=== PATIENT | female | born 1935 | race Caucasian/White ===

== ENCOUNTER 2018-09-19 05:17 | Inpatient (IN) | payer MEDICARE, OTHER ==
[2018-09-19] VITALS (7 sets, daily range): BP systolic 123–164; BP diastolic 72–96; Ht 165.1 cm; Wt 76.5 kg
[~2018-09-19] VITALS: Ht 165.1 cm; Wt 76.5 kg
--- NOTE | ~2018-09-19 | HEMODYNAMI ---
PATIENT:IAIN DOLL MEDICAL RECORD: [id number] : 37 LOCATION:[address] [id number] ADMISSION DATE: 09/19/18 Generatedon:09/19/201816:15 Patient name: IAIN DOLL Patient #: [id number] SSN: : 1935 Date of study: 09/19/2018 Page: Of Hemodynamic Procedure Report Patient Data Patient Demographics Procedure consent was obtained First Name: IAIN Gender: Female Last Name: SHARMILA : 1935 Patient #: [id number] Age: 82 year(s) Race: Additional ID: [id number] Contact details Address: [address] [place] [address] State: [place] City: [place] Zip code: [address] Past Medical History Allergies: No known allergies Admission Admission Data Admission Date: 09/19/2018 Admission Time: 6:41 Admit Source: Other Room #: D.2127 Lab Results Lab Result Date: 09/19/2018 Lab Result Time: 0:00 Biochemistry Name Units Result Min Max BUN mg/dl 13 --(--*-)-- 7 18 Creatinine mg/dl 0.9 --(-*--)-- 0.6 1.3 CBC Name Units Result Min Max Hematocrit % 37.2 *-(----)-- 42 54 Hemoglobin g/dl 12.5 *-(----)-- 13.5 17.5 Procedure Procedure Types Cath Procedure Diagnostic Procedure C [facility] w/Coronaries PCI Procedure Coronary Stent Coronary Stent Initial Procedure Description Procedure Date Procedure Date: 09/19/2018 Procedure Start Time: 15:38 Procedure End Time: 16:13 Procedure Staff Name Function Bubba Poe RT Monitor Adenike Reza RN Nurse Raul Morales MD Performing Physician Thierno Torres RT Scrub Felipa Hernández RT Monitor Procedure Data Cath Procedure Fluoroscopy Diagnostic fluoroscopy Total fluoroscopy Time: time: 11.5 min 11.5 min Diagnostic fluoroscopy Total fluoroscopy dose: dose: 1214 mGy 1214 mGy Contrast Material Contrast Material Type Amount (ml) Isovue 300 129 Entry Location Entry Primary Successful Side Size Upsize Upsize Entry Closure Succes sful Closure Location (Fr) 1 (Fr) 2 (Fr) Remarks Device Remarks Radial Right 6 Fr artery Short Femoral Right 5 Fr 6 Fr Exoseal artery Short Estimated blood loss: 5 ml Diagnostic catheters Device Type Used For End Catheter Placement DIAGNOSTIC Madison 110cm 5 Procedure Fr catheter ([id number]) DIAGNOSTIC 3DRC 5Fr Procedure catheter ([id number]) DIAGNOSTIC 3DRC 5Fr Procedure catheter ([id number]) Procedure Complications No complications Procedure Medications Medication Administration Route Dosage Oxygen etCO2 Nasal cannula 2 l/min Lidocaine 2% added to field 20 Heparin Flush Bag added to field 2 bags (1000units/500ml NS) 0.9% NaCl I.V. 100 ml/hr Radial Cocktail I.A. 1 syringe (Verapomil 2mg/Nitro 400mcg/Heparin 1500units) Heparin Bolus I.V. 4000 units Versed I.V. 1 mg Fentanyl I.V. 50 mcg Versed I.V. 1 mg Versed I.V. 1 mg Fentanyl I.V. 50 mcg Fentanyl I.V. 50 mcg Integrilin (Bolus I.V. 7.3 ml 2mg/ml) Versed I.V. 1 mg Fentanyl I.V. 50 mcg Plavix P.O. 600 mg Hemodynamics Rest HGB: 12.5 (g/dl) Heart Rate: 72 (bpm) Pressure Samples Time Site Value (mmHg) Purpose Heart Use Rate(bpm) 15:46 LV 138/12,14 Snapshot 75 Snapshots Pre Cath Intra NCS Post Cath Vital Signs Time Heart Resp SPO2 etCO2 NIBP (mmHg) Rhythm Pain Sedation Rate (ipm) (%) (mmHg) Status Level (bpm) 15:28:22 73 17 95 0 164/90(141) NSR 0 (11) 10(A) , No pain 15:32:45 79 13 97 0 165/85(133) NSR 0 (11) 10(A) , No pain 15:37:05 70 18 92 19.5 147/79(124) NSR 0 (11) 10(A) , No pain 15:41:19 76 16 92 0 137/80(113) NSR 0 (11) 9(A) , No pain 15:45:37 72 14 94 0 135/73(109) NSR 0 (11) 9(A) , No pain 15:49:53 72 13 94 29.3 140/73(104) NSR 0 (11) 9(A) , No pain 15:54:15 72 14 93 21 152/78(117) NSR 0 (11) 10(A) , No pain 15:58:35 74 15 95 9 141/83(127) NSR 0 (11) 9(A) , No pain 16:02:55 74 15 93 0 128/68(105) NSR 0 (11) 9(A) , No pain 16:07:11 70 16 96 31.6 133/65(105) NSR 0 (11) 10(A) , No pain 16:11:25 75 10 93 33.1 121/68(102) NSR 0 (11) 10(A) , No pain Medications Time Medication Route Dose Verified Delivered Reason Not es Effectiveness by by 15:32:52 Oxygen etCO2 2 l/min Raul Jeong used for Nasal St Rafa Reza RN procedure cannula 15:33:00 Lidocaine 2% added 20ml Raul Carter for local to vial [facility] anesthetic field MD PETIT 15:33:06 Heparin Flush added 2 bags Raul Carter used for Bag to [facility] procedure (1000units/500ml field MD PETIT NS) 15:33:13 0.9% NaCl I.V. 100 Raul Jeong Per physician ml/hr St Rafa Reza RN, MD 15:34:49 Versed I.V. 1 mg Raul Jeong for sedation St Rafa Reza RN, MD 15:34:55 Fentanyl I.V. 50 mcg Raul Roldanie for sedation St Rafa Reza RN, MD 15:37:12 Radial Cocktail I.A. 1 Raul Carter for (Verapomil syringe [facility] vasodilation 2mg/Nitro MD PETIT 400mcg/Hepari 15:39:00 Versed I.V. 1 mg Raul Jamarie for sedation St Rafa Reza RN, MD 15:39:08 Fentanyl I.V. 50 mcg Raul Roldanie for sedation St Rafa Reza RN, MD 15:55:04 Versed I.V. 1 mg Raul Roldanie for sedation St Rafa Reza RN, MD 15:55:09 Fentanyl I.V. 50 mcg Raul Buffie for sedation St Rafa Reza RN, MD 15:56:14 Heparin Bolus I.V. 4000 Raul Carter for abraham ified units [facility] anticoagulation with dr MD MD lakhani 16:01:57 Integrilin I.V. 7.3 ml Raul Jeong for Was maribel (Bolus 2mg/ml) St Rafa Reza RN antiplatelet 2.7 ml MD therapy of vial 16:03:10 Versed I.V. 1 mg Raul Joeng for sedation St Rafa Reza RN, MD 16:03:13 Fentanyl I.V. 50 mcg Raul Jeong for sedation St Rafa Reza RN, MD 16:10:01 Plavix P.O. 600 mg [address] Je[address] for St Rafa Reza RN antiplatelet therapy Procedure Log Time Note 15:00:09 Adenike Reza RN sent for patient. Start room use. 15:21:50 Informed consent obtained and on chart 15:21:54 Admit Source: Other 15:22:17 Time tracking: Regular hours (M-F 7:00 - 5:00) 15:22:21 Plan of Care:Hemodynamics will remain stable., Cardiac rhythm will remain stable., Comfort level will be maintained., Respiratory function will remain adequate., Patient/ family verbilizes understanding of procedure., Procedure tolerated without complication., Recovers from procedure without complications.. 15:22:26 Patient received from Med II to [facility] 2 Alert and oriented. Tansferred to table in Supine position. 15:22:27 Warm blankets applied, and lynette hugger turned on for patient comfort. 15:22:28 ECG and BP/O2 sat monitors applied to patient. 15:22:28 Correct patient and procedure confirmed by team. 15:22:44 H&P Date Dictated: 09/19/2018 Within 30 days and on chart.. 15:22:45 Pre-op teaching completed and patient verbalized understanding. 15:22:45 Pre-procedure instructions explained to patient. 15:22:46 Family in waiting room. 15:22:47 Patient NPO since Midnight. 15:22:53 Patient allergic to No known allergies 15:22:54 Is the patient allergic to Iodine/contrast media? No. 15:24:35 Is patient on blood thinner?No 15:26:20 Patient diabetic? No. 15:26:30 IV patent on arrival in left forearm with 0.9% NaCl at KVO. :: Lab Result : Hemoglobin 12.5 g/dl Lab Result : Hematocrit 37.2 % Lab Result : BUN 13 mg/dl Lab Result : Creatinine 0.9 mg/dl 15:: Lab results completed and on chart. 15:: Vital chart was started 15:32:00 Baseline sample Acquired. 15:32:12 Rhythm: sinus rhythm 15:: ST DEPRESSION 15::32 ----Pre-sedation anethsthesia assessment.---- 15:32:38 Previous problem with sedation/anesthesia? No ? 15:32:39 Snore? Yes 15:32:41 Sleep apnea? No 15:32:45 Deviated septum? No 15:32:48 Opens mouth fully? Yes 15:32:49 Sticks out tongue? Yes 15:32:52 Airway obstruction? No ? 15:32:52 Oxygen 2 l/min etCO2 Nasal cannula was administered by Adenike Reza RN; used for procedure; 15:33:00 Lidocaine 2% 20ml vial added to field was administered by Raul Morales MD; for local anesthetic; 15:33:06 Heparin Flush Bag (1000units/500ml NS) 2 bags added to field was administered by Raul Morales MD; used for procedure; 15:33:09 Dentures? Yes IN, PARTIAL 15:33:13 0.9% NaCl 100 ml/hr I.V. was administered by Adenike Reza RN; Per physician; 15:33:17 Pre procedure: right dorsailis pedis pulse 1+ Palpable, but thready & weak; easily obliterated 15:33:21 Modified Zay's test Ulnar < 7 seconds 15:33:31 Patient pain scale 0/10 ?. 15:33:37 Right Radial & Right Groin area was prepped with chlora-prep and draped in sterile fashion 15:33:43 Alarms reviewed by R. N. 15:33:44 Sharps counted by scrub and verified by R.N. 15:33:45 --------ALL STOP TIME OUT------ 15:33:46 Final Timeout: patient, procedure, and site verified with staff and physician. All members of the team are in agreement. 15:33:48 Right Radial & Right Groin site verified by team. 15:33:51 Physical assessment completed. ASA score P 2 - A patient with mild systemic disease as per Raul Morales MD. 15:33:57 Sedation plan: IV Moderate Sedation Medication:Versed, Fentanyl 15:34:49 Versed 1 mg I.V. was administered by Adeinke Reza RN; for sedation; 15:34:55 Fentanyl 50 mcg I.V. was administered by Adenike Reza RN; for sedation; 15:37:12 Radial Cocktail (Verapomil 2mg/Nitro 400mcg/Heparin 1500units) 1 syringe I.A. was administered by Raul Morales MD; for vasodilation; 15:37:41 Zero performed for pressure channel P1 15:37:56 Use device set Radial Dx or PCI 15:37:57 ACIST Syringe (17391) opened to sterile field. 15:37:58 Bag Decanter (2002S) opened to sterile field. 15:37:58 Medline Cath Pack ([id number]) opened to sterile field. 15:37:59 ACIST Hand Control (72323) opened to sterile field. 15:37:59 DIAGNOSTIC WIRE .035 260cm J wire (409616) opened to sterile field. 15:38:00 ACIST Manifold (93971) opened to sterile field. 15:38:01 Tegaderm 4 x 4 (1626W) opened to sterile field. 15:38:02 MBrace Wrist Support (087776321) opened to sterile field. 15:38:03 TR BAND Standard (QMX61OML) opened to sterile field. 15:38:09 SHEATH 6Fr Prelude Radial ([id number]) opened to sterile field. 15:38:14 Full Disclosure recording started 15:38:14 Procedure started. 15:38:21 Local anesthetic to right radial artery with Lidocaine 2% by Raul Morales MD.INITIAL ACCESS ONLY 15:38:37 A 6 Fr Short sheath was inserted into the Right Radial artery 15:38:52 A DIAGNOSTIC [place] 110cm 5 Fr catheter (224835) was advanced over the wire and used for Procedure. 15:38:56 Zero performed for pressure channel P1 15:39:00 Versed 1 mg I.V. was administered by Adenike Reza RN; for sedation; 15:39:08 Fentanyl 50 mcg I.V. was administered by Adenike Reza RN; for sedation; 15:41:11 GLIDE WIRE ANGLE 260cm (HO3691) opened to sterile field. 15:41:42 LCA angiography performed. 15:45:27 Catheter removed. 15:45:51 GUIDE 5FR AR1.0 catheter (SK9HI65) opened to sterile field. 15:46:35 LV hemodynamics recorded. 15:47:50 Catheter removed. 15:49:26 A DIAGNOSTIC 3DRC 5Fr catheter (005922X) was advanced over the wire and used for Procedure. 15:50:31 Catheter removed. unable to cannulate vessel. 15:51:00 SHEATH Prelude 5Fr 0.035 (DIA-2K-79-035) opened to sterile field. 15:51:26 Local anesthetic to right femoral artery with Lidocaine 2% by Raul Morales MD.ADDITIONAL ACCESS 15:51:38 A 5 Fr sheath was inserted into the Right Femoral artery 15:52:29 A DIAGNOSTIC 3DRC 5Fr catheter (078522X) was advanced over the wire and used for Procedure. 15:53:07 RCA angiography performed. 15:54:20 Catheter removed. 15:54:22 Proceeding to intervention. 15:54:50 SHEATH Prelude 6Fr 0.035 (LBU-3R-78-035) opened to sterile field. 15:55:04 Versed 1 mg I.V. was administered by Adenike Reza RN; for sedation; 15:55:09 Fentanyl 50 mcg I.V. was administered by Adenike Reza RN; for sedation; 15:56:14 Heparin Bolus 4000 units I.V. was administered by Raul Morales MD; for anticoagulation; verified with dr lakhani 15:56:19 Sheath upsized to a 6 Fr Short. 15:56:39 GUIDE 6FR EBU 3.5 catheter (MB1ZWQ09) opened to sterile field. 15:56:41 WHISPER 300cm guide wire ([id number]) opened to sterile field. 15:56:42 INFLATOR Merit BasixCompak (VA6010) opened to sterile field. 15:56:58 6 Fr EBU 3.5 guide catheter was inserted over the wire 15:57:07 WHISPER wire advanced. 15:59:50 ATTEMTING TO WIRE THE OM 16:01:08 UNABLE TO WIRE OM, REDIRECTED TO CIRC 16:01:10 Wire advanced across lesion. 16:01:57 Integrilin (Bolus 2mg/ml) 7.3 ml I.V. was administered by Adenike Reza RN; for antiplatelet therapy; Wasted 2.7 ml of vial 16:02:20 Inflate balloon Inflation number: 1 A EMERGE OTW 2.0 x 15 balloon ([id number]) was prepped and advanced across the Mid CX, then inflated to 15 ASAF for 0:30 (min:sec). 16:02:26 Balloon removed over the wire. 16:03:10 Versed 1 mg I.V. was administered by Adenike Reza RN; for sedation; 16:03:13 Fentanyl 50 mcg I.V. was administered by Adenike Reza RN; for sedation; 16:04:12 Place stent Inflation Number: 2 A INTEGRITY OTW 3.0 X 12 stent ([id number]) was prepped and advanced across the Mid CX. The stent was deployed at 14 ASAF for 0:33 (min:sec). 16:05:02 EXOSEAL 6Fr (EX600) opened to sterile field. 16:07:23 Stent catheter was removed intact over wire. 16:07:25 Wire removed. 16:07:26 Guide catheter removed. 16:07:53 Sheath removed intact; hemostasis achieved with Exoseal to the Right Femoral artery. 16:07:58 Procedure ended.(Physican Out) 16:08:17 Fluoroscopy time 11.50 minutes. 16:08:24 Fluoroscopy dose: 1214 mGy 16:08:24 Flurop Dose total: 1214 16:08:31 Contrast amount:Isovue 300 129ml. 16:08:33 Sharps counted by scrub and verified by R.N. 16:08:37 Insertion/operative site no bleeding no hematoma. 16:08:41 Post-op/insertion site Right Femoral artery dressed using a 4 x 4 and Tegaderm. 16:09:44 Procedure type changed to Cath procedure, Diagnostic procedure, LHC, LHC w/Coronaries, PCI procedure, Coronary Stent, Coronary Stent Initial 16:10:01 Plavix 600 mg P.O. was administered by Adenike Reza RN; for antiplatelet therapy; 16:12:34 TR band inflated with 10cc of air. 16:12:36 Post Procedure Pulses reassessed and unchanged 16:12:38 Post procedure rhythm: unchanged. 16:12:41 Estimated blood loss: 5 ml 16:12:44 Patient needs reinforcement of post procedure teaching. 16:12:44 Post procedure instruction explained to patient.Patient verbalizes understanding. 16:12:55 Procedure and supply charges have been captured, reviewed, submitted and are correct. 16:13:02 Procedure Complication : No complications 16:13:05 Vital chart was stopped 16:13:34 See physician's report for complete and final results. 16:13:40 Report given to [facility] II. 16:13:44 Patient transfered to [facility] with Stretcher. 16:13:47 Full Disclosure recording stopped 16:13:47 Procedure ended. 16:14:09 ACC-PCI Only Patient was given prescriptions, or instructed by Raul Morales MD to start/continue the following medications upon discharge: Plavix 16:14:10 End room use (Document Last) Intervention Summary Intervention Notes Time ActionType Lesion and Equipment Action# Pressure Duration Attributes Used 16:02:20 Inflate Mid CX EMERGE OTW 1 15 00:30 balloon 2.0 x 15 balloon ([id number]) 16:04:12 Place stent Mid CX INTEGRITY 2 14 00:33 OTW 3.0 X 12 stent ([id number]) Device Usage Item Name Manufacture Quantity Catalog Number Hospital Part Current Minimal Lot# / Charge Number Stock Stock Serial# Code ACIST Syringe Acist 1 51200 827345 946061 527588 20 (24303) Medical Systems Inc Medline Cath Medline 1 [id number] 983172 35799 889593 5 Pack ([id number]) Bag Decanter Microtek 1 958672 42025 514544 5 () Medical Inc. DIAGNOSTIC WIRE St Sukhdev 1 653537 404046 095539 926306 30 .035 260cm J wire (172254) ACIST Hand Acist 1 11060 587068 896297 033660 5 Control (12327) Medical Systems Inc ACIST Manifold Acist 1 76795 076912 333437 363967 5 (44073) Medical Systems Inc Tegaderm 4 x 4 3M 1 1626W 541013 722679 307264 5 (1626W) MBrace Wrist Advanced 1 140-0250-00 225493 10660 125160 5 Support Vascular (155056609) Dynamics TR BAND Terumo 1 IYU87-LYH 929984 866949 249712 40 Standard ([id number]) SHEATH 6Fr Merit 1 [id number] 431088 301655 950253 5 Prelude Radial Medical ([id number]) DIAGNOSTIC Terumo 1 40-5013 896190 825097 296405 5 [place] 110cm 5 Fr catheter (567604) GLIDE WIRE Terumo 1 WI4774 962014 554462 882470 5 ANGLE 260cm (XN7149) GUIDE 5FR AR1.0 Medtronic 1 PM0JJ67 129741 314744 861331 1 catheter (NY8VK47) DIAGNOSTIC 3DRC Cardinal 1 215662T 242219 436797 027362 9 5Fr catheter Health (901757T) SHEATH Prelude Merit 1 FGE-3D-24-035 390873 309384 101139 5 5Fr 0.035 Medical (XQW-7C-75-035) SHEATH Prelude Merit 1 CBU-3A-34-35 756300 0978059 579090 5 6Fr 0.035 Medical (PJF-1C-56-035) GUIDE 6FR EBU Medtronic 1 HE8ZCF78 021895 89773 075390 3 3.5 catheter (JD3SXH46) WHISPER 300cm Lui 1 [id number] 044264 544310 937652 5 guide wire Vascular (1559364XQ) INFLATOR Merit Merit 1 QK1617 204791 089075 403408 15 [employer] Medical (SV9782) EMERGE OTW 2.0 [place] 1 [id number] 171703 916482 826736 5 x 15 balloon Scientific ([id number]) INTEGRITY OTW Medtronic 1 [id number] 232414 668009 5 [id number] 3.0 X 12 stent ([id number]) EXOSEAL 6Fr Cardinal 1 EX600 807850 547796 392473 10 (EX600) Health Signature Audit [place] Stage Time Signature Unsigned Intra-Procedure 09/19/2018 Felipa Hernández 4:15:54 PM RT(R) Signatures Monitor : Bubba Poe RT Signature : Date : Time : Monitor : [facility] RT Signature : Date : Time : [address] [place] [address]
--- NOTE | ~2018-09-19 | OP ---
PATIENT NAME: IAIN DOLL MEDICAL RECORD: [id number] :[birth year] LOCATION:D.M2 D.7 ADMISSION DATE:09/19/18 SURGEON: TUAN CAPPS MD DATE OF OPERATION: 09/19/2018 PROCEDURE: Left heart catheterization, selective coronary angiography, right radial and right femoral artery approach. Marked tortuosity of ascending aorta, unable to engage the right via radial. Further interventions will need to be performed via femoral. FINDINGS: Left ventriculography not performed. LV pressure shows LV pressure of 124/14 with no significant pullback across the aortic valve. CORONARY ANATOMY: LEFT MAIN: Left main is free of disease. LAD: LAD in diagonal is somewhat of a bifid system. These are both severely diffusely diseased with the LAD totally occluded before the apex, not a vessel suitable for either percutaneous or open intervention. CIRCUMFLEX: There is a moderate-size circumflex system and at the takeoff of the first OM is an 80% stenosis. RIGHT CORONARY ARTERY: The right coronary artery is a large dominant artery without significant disease. PLAN: Intervention to the circumflex momentarily. DESCRIPTION OF PROCEDURE: Using indwelling 6 sheath, an EBU 3.5 guiding catheter provided excellent guide catheter support followed by 300-cm Whisper wire was placed across the tightly occluded 80% stenosis in circ, down this portion of vessel. Stent deployed was 3.0 x 12-mm Integrity nondrug-eluting stent up to 14 atmospheres. Final angiography shows excellent resolution of 80% stenosis. No significant residual. SEMAJ flow was 3 throughout the procedure. Integrilin was used in the case. Sheath was closed with ExoSeal device. Plavix was loaded in the lab. TRANSINT:[id number] Voice Confirmation ID: [id number] DOCUMENT ID: [id number] TUAN CAPPS MD at 2229 CC: [id number] DICTATION DATE: 09/19/18 1611 UM NURSE: 09/19/18 1648 ADM IN [place] [address] [place] [address]
--- NOTE | ~2018-09-19 | MORECARE ---
CASE MANAGEMENT DISCHARGE SUMMARY PATIENT: IAIN DOLL UNIT: [id number] ADM DATE: 09/19/18 AGE: 82 : 36 SEX: F ROOM/BED: D.5722 AUTHOR: ALFREDODOC PHYSICIAN: REFERRING PHYSICIAN: ANJEL ALVAREZ MD DATE OF SERVICE: 09/21/18 Discharge Plan Patient Name: IAIN DOLL Facility: [facility]:[place] : 1935 Planned Disposition: Home Anticipated Discharge Date: 09/21/18 Discharge Date: Expected LOS: 2 Initial Reviewer: [email or web address] Initial Review Date: 09/21/2018 Generated: 09/21/18 3:05 pm Comments DCP- Discharge Planning Updated by [email or web address]: Gracy Deras on 09/21/18 1:[address] Patient Name: IAIN DOLL Admission Status: ER Accout number: [id number] Admission Date: 09-19-2018 : 1935 Admission Diagnosis: Attending: ANJEL ALVAREZ Current LOS: 2 Anticipated DC Date: 09-21-2018 Planned Disposition: Home Primary Insurance: MEDICARE A & B Discharge Planning Comments: CM MET WITH PATIENT AND FAMILY ABOUT DC PLANNING NEEDS. STATES NO NEEDS. PATIENT IS INDEPENDANT WITH ADL'S AND LIVES WITH HER, DAUGHTER LIVES CLOSE. IMM SIGNED. NURSE IN ROOM TO DC PATIENT. CM WILL FOLLOW AND ASSIST NEEDED WITH DC PLANING/NEEDS. Paper Feeder: Gracy Deras DCPIA - Discharge Planning Initial Assessment Updated by [email or web address]: Gracy Deras on 09/21/18 1:59 pm * Is the patient Alert and Oriented? Yes * PCP YOANDY * Pharmacy [facility] IN [place] * Preadmission Environment Home with Family * ADLs Independent * Equipment None * List name and contact numbers for known caregivers / representatives who currently or will assist patient after discharge: * Community resources currently utilized None * Additional services required to return to the preadmission environment? No * Can the patient safely return to the preadmission environment? Yes * Has this patient been hospitalized within the prior 30 days at any hospital? No Coverage Notice Reviewer: [id number] - Gracy Deras Notice Issued Date-Time: 09/21/2018 13:56 Notice Type: IM Discharge Notice Notice Delivered To: Family Member Relationship to Patient: Spouse Personnel Director Name: Delivery Method: HAND - Hand Delivered Emely Days: Prior Verbal Notification: Recipient Understood Notice: Yes Recipient Signature: Yes Med Rec Note Co-signed by Attending: Coverage Notice Comment: Patient Name: IAIN DOLL Page 69200 at 1405 All edits/amendments must be made on the electronic document DICTATION DATE: 09/21/181404 STUCCO WORKER: ALYSSA 09/21/18 140 RPT#: [id number] DC DATE: STATUS: ADM IN [facility] [address] [place] [address] END OF REPORT
--- NOTE | ~2018-09-19 | MORECARE ---
CASE MANAGEMENT DISCHARGE SUMMARY PATIENT: IAIN DOLL UNIT: [id number] ADM DATE: 09/19/18 AGE: 82 : 36 SEX: F ROOM/BED: D.4331 AUTHOR: ALFREDODOC PHYSICIAN: REFERRING PHYSICIAN: ANJEL ALVAREZ MD DATE OF SERVICE: 09/21/18 Discharge Plan Patient Name: IAIN DOLL Facility: [facility]:[place] : 1935 Planned Disposition: Home Anticipated Discharge Date: 09/21/18 Discharge Date: 09/21/2018 Expected LOS: 2 Initial Reviewer: [email or web address] Initial Review Date: 09/21/2018 Generated: 09/21/18 3:50 pm Comments DCP- Discharge Planning Updated by [email or web address]: Gracy Deras on 09/21/18 1:[address] Patient Name: IAIN DOLL Admission Status: ER Accout number: [id number] Admission Date: 09-19-2018 : 1935 Admission Diagnosis: Attending: ANJEL ALVAREZ Current LOS: 2 Anticipated DC Date: 09-21-2018 Planned Disposition: Home Primary Insurance: MEDICARE A & B Discharge Planning Comments: CM MET WITH PATIENT AND FAMILY ABOUT DC PLANNING NEEDS. STATES NO NEEDS. PATIENT IS INDEPENDANT WITH ADL'S AND LIVES WITH HER, DAUGHTER LIVES CLOSE. IMM SIGNED. NURSE IN ROOM TO DC PATIENT. CM WILL FOLLOW AND ASSIST NEEDED WITH DC PLANING/NEEDS. Assistant Coach: Gracy Deras DCPIA - Discharge Planning Initial Assessment Updated by [email or web address]: Gracy Deras on 09/21/18 1:59 pm * Is the patient Alert and Oriented? Yes * PCP YOANDY * Pharmacy [facility] IN [place] * Preadmission Environment Home with Family * ADLs Independent * Equipment None * List name and contact numbers for known caregivers / representatives who currently or will assist patient after discharge: * Community resources currently utilized None * Additional services required to return to the preadmission environment? No * Can the patient safely return to the preadmission environment? Yes * Has this patient been hospitalized within the prior 30 days at any hospital? No Coverage Notice Reviewer: [id number] - Gracy Deras Notice Issued Date-Time: 09/21/2018 13:56 Notice Type: IM Discharge Notice Notice Delivered To: Family Member Relationship to Patient: Spouse Practical Nursing Instructor Name: Delivery Method: HAND - Hand Delivered Emely Days: Prior Verbal Notification: Recipient Understood Notice: Yes Recipient Signature: Yes Med Rec Note Co-signed by Attending: Coverage Notice Comment: Last DP export: 09/21/18 1:05 Patient Name: IAIN DOLL Page [phone] at 1450 All edits/amendments must be made on the electronic document DICTATION DATE: 09/21/181449 DIAGNOSTIC CARDIAC SONOGRAPHER: ALYSSA 09/21/181449 RPT#: [id number] DC DATE:09/21/18 STATUS: DIS IN [facility] [address] [place] [address] END OF REPORT
[2018-09-19] MEDS ORDERED: SYNTHROID150 MCG PO (05:22)
[2018-09-19] MEDS ORDERED: NEXIUM20 MG PO (05:22)
[2018-09-19] MEDS ORDERED: DONEPEZIL HCL10 M1 PO (05:22)
[2018-09-19] MEDS ORDERED: GLYCOLAX527 GM (05:23)
[2018-09-19] MEDS ORDERED: LYRICA25 MG PO (05:23)
[2018-09-19] MEDS ORDERED: MOBIC7.5 MG PO (05:23)
[2018-09-19] MEDS ORDERED: DDAVP0.1 MG PO (05:24)
[2018-09-19] MEDS ORDERED: DESERYL50 M2 PO (05:24)
[2018-09-19 06:25] LABS: BASOPHILS 0.2 % (0-2); EOSINOPHILS 0.5 % (0-7); HEMATOCRIT 37.2 % (36.0-48.0); HEMOGLOBIN 12.5 g/dL (12-16); IMMATURE GRANULOCYTES 0.2 % (0-5); LYMPHOCYTES 18.7 % (15-50); MCH 26.6 pg (26.0-34.0); MCHC 33.6 g/dL (31.0-37.0); MCV 79.1 fL (80.0-100.0); MEAN PLATELET VOLUME 8.5 fL (7.4-10.4); MONOCYTES 11.8 % (2-11); NEUTROPHILS 68.6 % (40-80); PLATELET COUNT 196 10x3/uL (130-400); RDW 14.2 % (11.5-14.5)
[2018-09-19 06:34] LABS: APTT 46.5 SECONDS (22.8-39.4); INR 1.06 (0.85-1.17); PROTIME 13.4 SECONDS (11.6-15.0)
[2018-09-19 06:42] LABS: ALBUMIN 3.1 g/dL (3.4-5.0); ALKALINE PHOSPHATASE 49 U/L (46-116); ALT (SGPT) 18 U/L (10-68); BILIRUBIN - TOTAL 0.46 mg/dL (0.2-1.3); CALC OSMOLALITY 266 mosm/kg (275-300); CALCIUM 8.5 mg/dL (8.5-10.1); CARBON DIOXIDE 26.4 mmol/L (21.0-32.0); CHLORIDE - SERUM 97 mmol/L (98-107); CREATININE - SERUM 0.9 mg/dL (0.6-1.3); GLUCOSE 109 mg/dL (74-106); POTASSIUM - SERUM 3.7 mmol/L (3.5-5.1); PROTEIN - SERUM 6.6 g/dL (6.4-8.2); SODIUM 133 mmol/L (136-145); UREA NITROGEN 13 mg/dL (7-18); eGFR NON AFRICAN AMERICAN 64 mL/min (90-120)
[2018-09-19 07:02] LABS: CKMB 11.9 U/L (0.0-3.6); CREATINE KINASE 187 UL (21-215); MAGNESIUM - SERUM 1.8 mg/dL (1.8-2.4)
[2018-09-19 07:04] LABS: TROPONIN-I 2.623 ng/mL (0.000-0.060)
[2018-09-19 12:36] LABS: TROPONIN-I 2.497 ng/mL (0.000-0.060)
[2018-09-19 18:54] LABS: CKMB 7.3 U/L (0.0-3.6); CREATINE KINASE 132 UL (21-215)
[2018-09-19 18:55] LABS: TROPONIN-I 2.362 ng/mL (0.000-0.060)
[2018-09-20] VITALS: BP 169/97
[2018-09-20 00:39] LABS: CKMB 5.7 U/L (0.0-3.6); CREATINE KINASE 162 UL (21-215); TROPONIN-I 1.951 ng/mL (0.000-0.060)
[2018-09-20 05:41] LABS: BASOPHILS 0.2 % (0-2); EOSINOPHILS 0 % (0-7); HEMATOCRIT 36.6 % (36.0-48.0); HEMOGLOBIN 12.2 g/dL (12-16); IMMATURE GRANULOCYTES 0.2 % (0-5); LYMPHOCYTES 9.8 % (15-50); MCH 26.6 pg (26.0-34.0); MCHC 33.3 g/dL (31.0-37.0); MCV 79.7 fL (80.0-100.0); MEAN PLATELET VOLUME 8.5 fL (7.4-10.4); MONOCYTES 9.6 % (2-11); NEUTROPHILS 80.2 % (40-80); RBC 4.59 10x6/uL (4.00-5.40); RDW 14.3 % (11.5-14.5); WBC 11.7 10x3/uL (4.8-10.8)
[2018-09-20 05:55] LABS: PLATELET COUNT 239 10x3/uL (130-400)
[2018-09-20 05:57] VITALS: BP 172/96
[2018-09-20 06:54] LABS: ALBUMIN 3.2 g/dL (3.4-5.0); ANION GAP 16.4 mmol/L (8-16); BILIRUBIN - TOTAL 0.51 mg/dL (0.2-1.3); CALCIUM 8.7 mg/dL (8.5-10.1); CARBON DIOXIDE 24.7 mmol/L (21.0-32.0); CHOL - HDL RATIO 2.8 ratio (2.3-4.1); CREATININE - SERUM 0.9 mg/dL (0.6-1.3); LDL-HDL RATIO 1.6 ratio (1.5-3.5); POTASSIUM - SERUM 4.1 mmol/L (3.5-5.1); PROTEIN - SERUM 6.7 g/dL (6.4-8.2)
[2018-09-20 07:48] VITALS: BP 169/83
[2018-09-20 11:31] VITALS: BP 164/82
[2018-09-20 14:51] LABS: APPEARANCE CLEAR (CLEAR); BILIRUBIN NEGATIVE (NEGATIVE); COLOR YELLOW (YELLOW); GLUCOSE NEGATIVE (NEGATIVE); KETONE MODERATE mg/dL (NEGATIVE); NITRITE NEGATIVE (NEGATIVE); PROTEIN 1+ mg/dL (NEGATIVE); UROBILINOGEN NORMAL (NORMAL)
[2018-09-20 14:52] LABS: BACTERIA MODERATE /hpf (NONE SEEN); EPITHELIAL CELLS 25-50 /hpf (0-5); RED CELLS - URINE 0-5 /hpf (0-5)
[2018-09-20 15:15] VITALS: BP 144/76
[2018-09-20 20:49] VITALS: BP 160/84
[2018-09-21 01:18] VITALS: BP 159/75
[2018-09-21 06:15] VITALS: BP 144/86
[2018-09-21 08:27] VITALS: BP 177/91
[2018-09-21] MEDS ORDERED: LEVAQUIN250 MG PO (11:23)
[2018-09-21] MEDS ORDERED: PLAVIX75 MG PO (11:23)
[2018-09-21] MEDS ORDERED: COREG 3.1253.125 MG PO (11:24)
[2018-09-21 11:59] VITALS: BP 107/74
== END 2018-09-21 14:00 | disposition home or self-care (01) | DRG 248 ==
LOC: D.ER 05:17 → D.M2 06:41
PROVIDERS: Family Medicine; Internal Medicine Cardiovascular Disease; Internal Medicine Nephrology
PROC: B2111ZZ Fluoroscopy of Multiple Coronary Arteries using Low Osmolar Contrast (ICD-10-PCS; 2018-09-19)
PROC: B2151ZZ Fluoroscopy of Left Heart using Low Osmolar Contrast (ICD-10-PCS; 2018-09-19)
PROC: 02703DZ Dilation of Coronary Artery, One Artery with Intraluminal Device, Percutaneous Approach (ICD-10-PCS; principal; 2018-09-19 09:30)
PROC: 4A023N7 Measurement of Cardiac Sampling and Pressure, Left Heart, Percutaneous Approach (ICD-10-PCS; 2018-09-19 09:30)
DX: I21.4 Non-ST elevation (NSTEMI) myocardial infarction (principal); G92 Toxic encephalopathy; N39.0 Urinary tract infection, site not specified; I25.10 Atherosclerotic heart disease of native coronary artery without angina pectoris; I08.1 Rheumatic disorders of both mitral and tricuspid valves; F03.90 Unspecified dementia, unspecified severity, without behavioral disturbance, psychotic disturbance, mood disturbance, and anxiety; R41.0 Disorientation, unspecified; I10 Essential (primary) hypertension